=== PATIENT | male | born 1995 | race Two or more races ===

== ENCOUNTER 2018-03-18 23:24 | Emergency (ER) | payer OTHER ==
[~2018-03-18] VITALS: Ht 154.9 cm; Wt 68.2 kg
[2018-03-18] MEDS ORDERED: NS 1,000 ML IV ONE (23:45)
[2018-03-19 03:03] VITALS: BP 123/58
== END 2018-03-19 03:04 | disposition home or self-care (01) ==
LOC: EDBD 23:24 → M ED 23:24
DX: F10.229 Alcohol dependence with intoxication, unspecified (principal)

== ENCOUNTER 2018-07-25 08:25 | Emergency (ER) | payer OTHER ==
[~2018-07-25] VITALS: Ht 190.5 cm; Wt 81.8 kg
[2018-07-25] MEDS ORDERED: METOCLOPRAMIDE 10 MG TAB PO ONE (09:30)
[2018-07-25] MEDS ORDERED: ACETAMINOPHEN 500 MG TAB PO ONE (09:30)
--- NOTE | 2018-07-25 10:09 | REP ---
CT Head without contrast HISTORY: Trauma COMPARISON: None There is no intraparenchymal hemorrhage, acute infarct, mass or midline shift. The ventricular system is normal in appearance. There is no extra cerebral collection. There is no fracture. The visualized sinuses are clear. IMPRESSION: There is no intracranial lesion. Electronically Signed by Carlos Morillo MD 07/25/2018 10:01 A
[2018-07-25] MEDS ORDERED: CYCL10TA PO (10:17)
[2018-07-25] MEDS ORDERED: NAPR-837 PO (10:17)
[2018-07-25 10:18] VITALS: BP 133/62
[2018-07-25] MEDS ORDERED: NAPROXEN 250 MG TAB PO ONE (10:30)
== END 2018-07-25 10:27 | disposition home or self-care (01) ==
LOC: M ED 08:25
DX: S00.90XA Unspecified superficial injury of unspecified part of head, initial encounter (principal); R51 Headache; V43.52XA Car driver injured in collision with other type car in traffic accident, initial encounter; Y92.410 Unspecified street and highway as the place of occurrence of the external cause